=== PATIENT | male | born 1975 | race African-American/Black ===

== ENCOUNTER 2019-12-09 13:29 | Emergency (ER) | payer SELFPAY ==
[~2019-12-09] VITALS: Ht 167.6 cm; Wt 73.0 kg
[2019-12-09] MEDS ORDERED: VISCOUS LIDOCAINE 2% 15 ML UDC PO STA (19:26)
[2019-12-09] MEDS ORDERED: MAGNESIUM/ALUMINUM HYDROXIDE/SIMETHICONE 30ML UDC PO STA (19:26)
[2019-12-09] MEDS ORDERED: FAMOTIDINE 20MG TABLET PO ONE (19:30)
[2019-12-09] MEDS ORDERED: LORAZEPAM 1MG TABLET PO ONE (19:30)
[2019-12-09 19:51] LABS: BASOPHILS % 0.9 % (0.0-2.0); EOSINOPHILS % 1.3 % (0.0-5.0); HEMATOCRIT. 45.3 % (42.0-52.0); LYMPHOCYTES % 37.7 % (20.0-50.0); MEAN CORPUSCULAR HEMOGLOBIN 31.4 pg (28.0-32.0); MEAN CORPUSCULAR VOLUME 94.8 fL (80.0-94.0); MEAN PLATELET VOLUME 8.2 fl (7.4-10.4); MONOCYTES % 5.7 % (2.0-8.0); NEUTROPHILS % 54.4 % (40.0-76.0); PLATELET 152 x1000/uL (130-400); RED BLOOD CELL COUNT 4.78 mill/uL (4.7-6.1); RED CELL DISTRIBUTION WIDTH 21.1 % (11.6-14.6)
[2019-12-09 19:52] LABS: CHLORIDE 109 mEq/L (98-107)
[2019-12-09 20:30] VITALS: BP 119/79
== END 2019-12-09 20:51 | disposition home or self-care (01) ==
LOC: ER 13:29
DX: F10.239 Alcohol dependence with withdrawal, unspecified (principal); K29.20 Alcoholic gastritis without bleeding; I11.0 Hypertensive heart disease with heart failure; I50.9 Heart failure, unspecified; F17.210 Nicotine dependence, cigarettes, uncomplicated; F12.10 Cannabis abuse, uncomplicated; Y90.9 Presence of alcohol in blood, level not specified; Z91.14 Patient's other noncompliance with medication regimen; Z71.6 Tobacco abuse counseling
CPT/HCPCS: 36415; 71045; 80053; 84484; 85025; 93005; 99285; 99406

== ENCOUNTER 2019-12-29 19:47 | Inpatient (IN) | payer OTHER ==
[~2019-12-29] VITALS: Ht 180.3 cm; Wt 73.0 kg
[2019-12-29] MEDS ORDERED: SODIUM CHLORIDE 0.9% 1,000 ML IV ONE ×3 (20:06→22:37)
[2019-12-29] MEDS ORDERED: ONDANSETRON HCL 4MG/2ML INJ IV STA (20:06)
[2019-12-29] MEDS ORDERED: LORAZEPAM 2MG/ML CPJ IV STA (20:06)
[2019-12-29] MEDS ORDERED: VECURONIUM BROMIDE 10 MG/VIAL IV ONE ×2 (21:16→21:45)
[2019-12-29] MEDS ORDERED: SODIUM CHLORIDE 0.9% 10ML VIAL ONE (21:16)
[2019-12-29] MEDS ORDERED: ETOMIDATE 2MG/ML 10ML VIAL IV ONE ×2 (21:16→21:45)
[2019-12-29] MEDS ORDERED: PROPOFOL 10MG/ML 100ML 100 ML IV ONE (21:45)
[2019-12-29 22:09] LABS: BG BASE EXCESS -8.6 mmol/L (-2.0-2.0); BG CARBOXYHEMOGLOBIN 0.5 % (0.5-1.5); BG DEOXYHEMOGLOBIN 0.5 % (0.0-5.0); BG FRACTION INSPIRED OXYGEN 100; BG HCO3 ACT 21.1 mmol/L (22.0-26.0); BG METHEMOGLOBIN 0.3 % (0.0-1.5); BG OXYGEN SATURATION 99.5 % (92.0-98.5); BG OXYHEMOGLOBIN 98.7 % (94.0-97.0); BG PCO2 63.7 mmHg (35.0-45.0); BG PH 7.139 (7.350-7.450); BG PO2 301.7 mmHg (75.0-100.0); BG SAMPLE SITE RIGHT RADIAL; BG TIDAL VOLUME(mL) 500 mL; BG TOTAL HEMOGLOBIN 13.3 g/dL (12.0-18.0); BG VENT MODE VENT - A/C; BG VENT RATE 16 set
[2019-12-29] MEDS ORDERED: NOREPINEPHRINE 4 MG in DEXT 5% WATER 246 ML IV ONE (22:45)
[2019-12-29] MEDS ORDERED: NOREPINEPHRINE 4MG/250ML PMX 250 ML IV PRN (23:00)
[2019-12-29 23:23] LABS: BG BASE EXCESS -8.3 mmol/L (-2.0-2.0); BG CARBOXYHEMOGLOBIN 0.2 % (0.5-1.5); BG DEOXYHEMOGLOBIN 3.4 % (0.0-5.0); BG FRACTION INSPIRED OXYGEN 40; BG HCO3 ACT 18.4 mmol/L (22.0-26.0); BG METHEMOGLOBIN 0.1 % (0.0-1.5); BG OXYGEN SATURATION 96.6 % (92.0-98.5); BG OXYHEMOGLOBIN 96.3 % (94.0-97.0); BG PCO2 42.2 mmHg (35.0-45.0); BG PH 7.258 (7.350-7.450); BG PO2 100.2 mmHg (75.0-100.0); BG SAMPLE SITE RIGHT RADIAL; BG TIDAL VOLUME(mL) 600 mL; BG TOTAL HEMOGLOBIN 12.7 g/dL (12.0-18.0); BG VENT MODE VENT - A/C; BG VENT RATE 16 set
[2019-12-29 23:37] LABS: HEMATOCRIT. 41.3 % (42.0-52.0); HEMOGLOBIN. 13.5 g/dL (14.0-18.0); MEAN CORPUSCULAR HEMOGLOBIN 31.8 pg (28.0-32.0); MEAN CORPUSCULAR VOLUME 96.8 fL (80.0-94.0); MEAN PLATELET VOLUME 8.7 fl (7.4-10.4); PLATELET 139 x1000/uL (130-400); RED BLOOD CELL COUNT 4.26 mill/uL (4.7-6.1); RED CELL DISTRIBUTION WIDTH 19.1 % (11.6-14.6)
[2019-12-29 23:39] LABS: CHLORIDE 110 mEq/L (98-107)
[2019-12-29 23:46] LABS: ETHANOL BLOOD 232 mg/dL
[2019-12-29 23:50] LABS: CREATINE KINASE 226 IU/L (39-308)
[2019-12-29 23:53] LABS: CLARITY URINE CLEAR (CLEAR); COLOR URINE YELLOW (YELLOW); KETONES URINE TRACE (NEGATIVE); LEUKOCYTE ESTERASE URINE NEGATIVE (NEGATIVE); NITRITE URINE NEGATIVE (NEGATIVE); OCCULT BLOOD URINE 3+ (NEGATIVE); PROTEIN URINE 2+ (NEGATIVE); SPECIFIC GRAVITY URINE 1.018 (1.005-1.030)
[2019-12-30] VITALS (50 sets, daily range): BP systolic 93–173; BP diastolic 54–106
[2019-12-30 00:06] LABS: *AMPHETAMINES SCREEN URINE NEGATIVE (NEGATIVE); *BARBITURATES SCREEN URINE NEGATIVE (NEGATIVE); *BENZODIAZEPINES SCREEN URINE PRESUMTIVE POSITIVE (NEGATIVE); *COCAINE SCREEN URINE NEGATIVE (NEGATIVE)
[2019-12-30 00:07] LABS: CANNABINOID URINE SCREEN PRESUMTIVE POSITIVE (NEGATIVE); METHADONE URINE SCREEN NEGATIVE (NEGATIVE); OPIATES URINE SCREEN NEGATIVE (NEGATIVE); PHENCYCLIDINE URINE SCREEN NEGATIVE (NEGATIVE)
[2019-12-30] MEDS ORDERED: ONDANSETRON HCL 4MG/2ML INJ IV PRN (01:30)
[2019-12-30] MEDS ORDERED: NOREPINEPHRINE 4 MG in DEXT 5% WATER 246 ML IV PRN (01:30)
[2019-12-30] MEDS ORDERED: PROPOFOL 10MG/ML 100ML 100 ML IV PRN (01:30)
[2019-12-30] MEDS ORDERED: CLON-457 MT (01:54)
[2019-12-30] MEDS ORDERED: OMEP20CA14 MT (01:54)
[2019-12-30 02:04] LABS: ATYPICAL LYMPHOCYTES 3
[2019-12-30 02:05] LABS: PLATELET ESTIMATE NORMAL
[2019-12-30] MEDS: LORAZEPAM 2MG/ML CPJ IV PRN ×2 (02:24→08:57)
[2019-12-30] MEDS ORDERED: SODIUM CHL 0.45% + KCL 20MEQ/L 1,000 ML IV SCH (03:00)
[2019-12-30] MEDS: PIPERACILLIN/TAZOBACTAM 3.375 G in DEXT 5% WATER 100 ML IV SCH ×3 (05:26→22:04)
[2019-12-30 05:34] LABS: HEMATOCRIT. 38.7 % (42.0-52.0); HEMOGLOBIN. 13.1 g/dL (14.0-18.0); MEAN CORPUSCULAR HEMOGLOBIN 32.2 pg (28.0-32.0); MEAN CORPUSCULAR VOLUME 95.4 fL (80.0-94.0); MEAN PLATELET VOLUME 8.1 fl (7.4-10.4); PLATELET 126 x1000/uL (130-400); RED BLOOD CELL COUNT 4.06 mill/uL (4.7-6.1); RED CELL DISTRIBUTION WIDTH 18.6 % (11.6-14.6)
[2019-12-30 05:40] LABS: CHLORIDE 113 mEq/L (98-107)
[2019-12-30] MEDS ORDERED: PIPERACILLIN/TAZOBACTAM 3.375 G/VIAL IV SCH (06:00)
[2019-12-30 07:24] LABS: BG BASE EXCESS -6.8 mmol/L (-2.0-2.0); BG CARBOXYHEMOGLOBIN 0.8 % (0.5-1.5); BG DEOXYHEMOGLOBIN 2.5 % (0.0-5.0); BG HCO3 ACT 16.5 mmol/L (22.0-26.0); BG METHEMOGLOBIN 0.6 % (0.0-1.5); BG OXYGEN SATURATION 97.5 % (92.0-98.5); BG OXYHEMOGLOBIN 96.1 % (94.0-97.0); BG PCO2 27.4 mmHg (35.0-45.0); BG PH 7.397 (7.350-7.450); BG PO2 99.1 mmHg (75.0-100.0); BG SAMPLE SITE RIGHT RADIAL; BG TIDAL VOLUME(mL) 600 mL; BG TOTAL HEMOGLOBIN 13.4 g/dL (12.0-18.0); BG VENT MODE VENT - A/C; BG VENT RATE 24 set
[2019-12-30 08:06] LABS: PLATELET ESTIMATE SLIGHTLY DECREASED
[2019-12-30] MEDS: ENOXAPARIN 40MG/0.4ML SYR SUBCUT SCH (08:56)
[2019-12-30] MEDS: PANTOPRAZOLE SODIUM 40 MG/VIAL IV SCH (08:56)
[2019-12-30] MEDS: FOLIC ACID 1 MG, THIAMINE HCL 100 MG, MVI, ADULT NO.1 10 ML in DEXTROSE 5% WATER 1,000 ML IV SCH ×4 (11:30)
[2019-12-30] MEDS: IPRATROPIUM/ALBUTEROL 0.5-3(2.5)MG/3ML NEB HHN SCH ×3 (12:55→22:40)
[2019-12-30] MEDS: HYDRALAZINE HCL 10MG TABLET PO SCH (22:04)
[2019-12-31] VITALS (36 sets, daily range): BP systolic 97–172; BP diastolic 57–100
[2019-12-31] MEDS: PIPERACILLIN/TAZOBACTAM 3.375 G in DEXT 5% WATER 100 ML IV SCH ×3 (05:46→21:32)
[2019-12-31] MEDS: HYDRALAZINE HCL 10MG TABLET PO SCH ×3 (05:46→21:32)
[2019-12-31 05:47] LABS: BASOPHILS % 0.6 % (0.0-2.0); EOSINOPHILS % 2.2 % (0.0-5.0); HEMATOCRIT. 39.1 % (42.0-52.0); HEMOGLOBIN. 13.2 g/dL (14.0-18.0); LYMPHOCYTES % 18.3 % (20.0-50.0); MEAN CORPUSCULAR HEMOGLOBIN 31.8 pg (28.0-32.0); MEAN CORPUSCULAR VOLUME 94.1 fL (80.0-94.0); MEAN PLATELET VOLUME 8.2 fl (7.4-10.4); MONOCYTES % 5.5 % (2.0-8.0); NEUTROPHILS % 73.4 % (40.0-76.0); PLATELET 121 x1000/uL (130-400); RED BLOOD CELL COUNT 4.16 mill/uL (4.7-6.1); RED CELL DISTRIBUTION WIDTH 18.3 % (11.6-14.6)
[2019-12-31 05:54] LABS: CHLORIDE 111 mEq/L (98-107)
[2019-12-31] MEDS: DEXT 5%/0.45% NACL 1000ML 1,000 ML IV SCH ×2 (07:09→17:00)
[2019-12-31] MEDS: ENOXAPARIN 40MG/0.4ML SYR SUBCUT SCH (08:08)
[2019-12-31] MEDS: PANTOPRAZOLE SODIUM 40 MG/VIAL IV SCH (08:08)
[2019-12-31] MEDS: LEVOTHYROXINE SODIUM 50MCG TABLET PO SCH (08:08)
[2019-12-31 08:45] LABS: BG BASE EXCESS -4.1 mmol/L (-2.0-2.0); BG CARBOXYHEMOGLOBIN 0.2 % (0.5-1.5); BG DEOXYHEMOGLOBIN 1.3 % (0.0-5.0); BG FRACTION INSPIRED OXYGEN 40; BG HCO3 ACT 17.6 mmol/L (22.0-26.0); BG METHEMOGLOBIN 0.1 % (0.0-1.5); BG OXYGEN SATURATION 98.7 % (92.0-98.5); BG OXYHEMOGLOBIN 98.4 % (94.0-97.0); BG PCO2 24.3 mmHg (35.0-45.0); BG PH 7.478 (7.350-7.450); BG SAMPLE SITE RIGHT RADIAL; BG TIDAL VOLUME(mL) 600 mL; BG TOTAL HEMOGLOBIN 13.6 g/dL (12.0-18.0); BG VENT MODE VENT - A/C; BG VENT RATE 24 set
[2019-12-31] MEDS: IPRATROPIUM/ALBUTEROL 0.5-3(2.5)MG/3ML NEB HHN SCH ×3 (08:47→22:19)
[2019-12-31] MEDS ORDERED: FUROSEMIDE 40MG/4ML VIAL IVP SCH (11:00)
[2019-12-31] MEDS: FOLIC ACID 1 MG, THIAMINE HCL 100 MG, MVI, ADULT NO.1 10 ML in DEXTROSE 5% WATER 1,000 ML IV SCH ×4 (11:06)
[2019-12-31 13:11] LABS: BG BASE EXCESS 0.2 mmol/L (-2.0-2.0); BG CARBOXYHEMOGLOBIN 0.8 % (0.5-1.5); BG DEOXYHEMOGLOBIN 1.9 % (0.0-5.0); BG FRACTION INSPIRED OXYGEN 40; BG HCO3 ACT 24.8 mmol/L (22.0-26.0); BG METHEMOGLOBIN 0.2 % (0.0-1.5); BG OXYGEN SATURATION 98.1 % (92.0-98.5); BG OXYHEMOGLOBIN 97.1 % (94.0-97.0); BG PCO2 40.1 mmHg (35.0-45.0); BG PH 7.409 (7.350-7.450); BG PO2 116.5 mmHg (75.0-100.0); BG PRESSURE SUPPORT 10; BG SAMPLE SITE RIGHT RADIAL; BG TIDAL VOLUME(mL) 600 mL; BG TOTAL HEMOGLOBIN 14.6 g/dL (12.0-18.0); BG VENT MODE VENT - SIMV; BG VENT RATE 10 set
[2019-12-31] MEDS: CHLORDIAZEPOXIDE 25MG CAPSULE PO SCH ×2 (15:16→21:32)
[2019-12-31] MEDS: LEVETIRACETAM 500MG PREMIX 100 ML IV SCH (16:26)
[2019-12-31] MEDS: LORAZEPAM 2MG/ML CPJ IV PRN (19:11)
[2019-12-31] MEDS ORDERED: LORAZEPAM 2MG/ML CPJ IV PRN (19:30)
[2020-01-01] VITALS (48 sets, daily range): BP systolic 86–140; BP diastolic 51–91
[2020-01-01] MEDS: LEVETIRACETAM 500MG PREMIX 100 ML IV SCH ×3 (00:04→20:45)
[2020-01-01] MEDS: FENTANYL CITRATE/PF 500 MCG in SODIUM CHLORIDE 0.9% 40 ML IV PRN ×2 (00:05→13:23)
[2020-01-01] MEDS: MIDAZOLAM HCL 50 MG in DEXTROSE 5% WATER 40 ML IV PRN ×2 (00:06→13:22)
[2020-01-01] MEDS: DEXT 5%/0.45% NACL 1000ML 1,000 ML IV SCH ×3 (03:46→22:23)
[2020-01-01] MEDS: CHLORDIAZEPOXIDE 25MG CAPSULE PO SCH ×3 (05:24→22:23)
[2020-01-01] MEDS: PIPERACILLIN/TAZOBACTAM 3.375 G in DEXT 5% WATER 100 ML IV SCH ×3 (05:24→21:33)
[2020-01-01] MEDS: HYDRALAZINE HCL 10MG TABLET PO SCH (05:24)
[2020-01-01 06:31] LABS: BASOPHILS % 0.5 % (0.0-2.0); EOSINOPHILS % 3.6 % (0.0-5.0); HEMATOCRIT. 44.4 % (42.0-52.0); HEMOGLOBIN. 15.1 g/dL (14.0-18.0); LYMPHOCYTES % 16.4 % (20.0-50.0); MEAN CORPUSCULAR HEMOGLOBIN 32.1 pg (28.0-32.0); MEAN CORPUSCULAR VOLUME 94.7 fL (80.0-94.0); MEAN PLATELET VOLUME 8.7 fl (7.4-10.4); MONOCYTES % 7.3 % (2.0-8.0); NEUTROPHILS % 72.2 % (40.0-76.0); PLATELET 124 x1000/uL (130-400); RED BLOOD CELL COUNT 4.69 mill/uL (4.7-6.1); RED CELL DISTRIBUTION WIDTH 18.2 % (11.6-14.6)
[2020-01-01 07:46] LABS: CHLORIDE 104 mEq/L (98-107)
[2020-01-01] MEDS: LEVOTHYROXINE SODIUM 50MCG TABLET PO SCH (08:12)
[2020-01-01] MEDS: PANTOPRAZOLE SODIUM 40 MG/VIAL IV SCH (08:12)
[2020-01-01] MEDS: ENOXAPARIN 40MG/0.4ML SYR SUBCUT SCH (08:12)
[2020-01-01] MEDS ORDERED: SODIUM CHLORIDE 0.9% 1,000 ML IV NR (09:45)
[2020-01-01] MEDS ORDERED: POTASSIUM CHLORIDE 20MEQ TABLET SR PO NR (11:15)
[2020-01-01] MEDS ORDERED: DILTIAZEM HCL 5MG/ML 5ML VIAL IV NR (11:30)
[2020-01-01] MEDS ORDERED: SODIUM CHLORIDE 0.9% 500 ML IV NR (11:30)
[2020-01-01] MEDS ORDERED: FOLIC ACID 1 MG, THIAMINE HCL 100 MG, MVI, ADULT NO.1 10 ML in DEXT 5%/0.45% NACL 1000M... IV SCH ×4 (14:30)
[2020-01-01] MEDS ORDERED: IPRATROPIUM BROMIDE (0.02%) 0.5MG/2.5ML NEB HHN PRN (14:30)
[2020-01-01 15:16] LABS: BG BASE EXCESS -2.9 mmol/L (-2.0-2.0); BG CARBOXYHEMOGLOBIN 0.9 % (0.5-1.5); BG DEOXYHEMOGLOBIN 2.7 % (0.0-5.0); BG FRACTION INSPIRED OXYGEN 35; BG HCO3 ACT 19.9 mmol/L (22.0-26.0); BG METHEMOGLOBIN 0.1 % (0.0-1.5); BG OXYGEN SATURATION 97.3 % (92.0-98.5); BG OXYHEMOGLOBIN 96.3 % (94.0-97.0); BG PCO2 29.8 mmHg (35.0-45.0); BG PH 7.443 (7.350-7.450); BG PO2 90.4 mmHg (75.0-100.0); BG SAMPLE SITE RIGHT RADIAL; BG TIDAL VOLUME(mL) 600 mL; BG TOTAL HEMOGLOBIN 14.3 g/dL (12.0-18.0); BG VENT MODE VENT - A/C; BG VENT RATE 10 set
[2020-01-01 15:33] LABS: INR 1.1; PROTHROMBIN TIME 11.6 sec (9.6-11.0)
[2020-01-01 15:41] LABS: CREATINE KINASE 41 IU/L (39-308)
[2020-01-02] VITALS (46 sets, daily range): BP systolic 113–151; BP diastolic 62–93
[2020-01-02] MEDS: PIPERACILLIN/TAZOBACTAM 3.375 G in DEXT 5% WATER 100 ML IV SCH ×3 (05:44→21:20)
[2020-01-02] MEDS: CHLORDIAZEPOXIDE 25MG CAPSULE PO SCH ×3 (05:44→21:22)
[2020-01-02] MEDS: MIDAZOLAM HCL 50 MG in DEXTROSE 5% WATER 40 ML IV PRN (06:17)
[2020-01-02 06:30] LABS: BASOPHILS % 0.8 % (0.0-2.0); EOSINOPHILS % 5.6 % (0.0-5.0); HEMATOCRIT. 39.7 % (42.0-52.0); HEMOGLOBIN. 13.4 g/dL (14.0-18.0); MEAN CORPUSCULAR HEMOGLOBIN 32.1 pg (28.0-32.0); MEAN CORPUSCULAR VOLUME 95.4 fL (80.0-94.0); MEAN PLATELET VOLUME 8.5 fl (7.4-10.4); MONOCYTES % 10.5 % (2.0-8.0); NEUTROPHILS % 62.1 % (40.0-76.0); PLATELET 118 x1000/uL (130-400); RED BLOOD CELL COUNT 4.16 mill/uL (4.7-6.1)
[2020-01-02 06:44] LABS: CHLORIDE 109 mEq/L (98-107)
[2020-01-02 07:54] LABS: BG BASE EXCESS -1.3 mmol/L (-2.0-2.0); BG CARBOXYHEMOGLOBIN 0.3 % (0.5-1.5); BG DEOXYHEMOGLOBIN 2.9 % (0.0-5.0); BG FRACTION INSPIRED OXYGEN 35; BG METHEMOGLOBIN 0.3 % (0.0-1.5); BG OXYGEN SATURATION 97.1 % (92.0-98.5); BG OXYHEMOGLOBIN 96.5 % (94.0-97.0); BG PCO2 32.9 mmHg (35.0-45.0); BG PH 7.443 (7.350-7.450); BG PO2 90.1 mmHg (75.0-100.0); BG SAMPLE SITE RIGHT RADIAL; BG TIDAL VOLUME(mL) 600 mL; BG TOTAL HEMOGLOBIN 13.6 g/dL (12.0-18.0); BG VENT MODE VENT - A/C; BG VENT RATE 10 set
[2020-01-02] MEDS: LEVOTHYROXINE SODIUM 50MCG TABLET PO SCH (09:05)
[2020-01-02] MEDS: PANTOPRAZOLE SODIUM 40 MG/VIAL IV SCH (09:05)
[2020-01-02] MEDS: FENTANYL CITRATE/PF 500 MCG in SODIUM CHLORIDE 0.9% 40 ML IV PRN (09:05)
[2020-01-02] MEDS: ENOXAPARIN 40MG/0.4ML SYR SUBCUT SCH (09:05)
[2020-01-02] MEDS: DEXT 5%/0.45% NACL 1000ML 1,000 ML IV SCH ×2 (09:06→19:35)
[2020-01-02] MEDS: LEVETIRACETAM 500MG PREMIX 100 ML IV SCH ×2 (09:06→20:09)
[2020-01-02] MEDS: FOLIC ACID 1 MG, THIAMINE HCL 100 MG, MVI, ADULT NO.1 10 ML in DEXT 5%/0.45% NACL 1000M... IV SCH ×4 (11:12)
[2020-01-02] MEDS ORDERED: MAGNESIUM 2 G PREMIX 50 ML IV SCH (16:00)
[2020-01-02 16:14] LABS: BG BASE EXCESS -3.5 mmol/L (-2.0-2.0); BG CARBOXYHEMOGLOBIN 0.9 % (0.5-1.5); BG DEOXYHEMOGLOBIN 4.1 % (0.0-5.0); BG FRACTION INSPIRED OXYGEN 30; BG HCO3 ACT 21.3 mmol/L (22.0-26.0); BG METHEMOGLOBIN 0.1 % (0.0-1.5); BG OXYGEN SATURATION 95.9 % (92.0-98.5); BG OXYHEMOGLOBIN 94.9 % (94.0-97.0); BG PH 7.367 (7.350-7.450); BG PO2 85.3 mmHg (75.0-100.0); BG PRESSURE SUPPORT 8; BG SAMPLE SITE RIGHT RADIAL; BG TOTAL HEMOGLOBIN 13.7 g/dL (12.0-18.0); BG VENT MODE VENT - CPAP
[2020-01-03] VITALS (25 sets, daily range): BP systolic 111–185; BP diastolic 56–103
[2020-01-03] MEDS: DEXT 5%/0.45% NACL 1000ML 1,000 ML IV SCH ×2 (05:02→15:00)
[2020-01-03] MEDS: CHLORDIAZEPOXIDE 25MG CAPSULE PO SCH ×3 (05:02→21:15)
[2020-01-03] MEDS: PIPERACILLIN/TAZOBACTAM 3.375 G in DEXT 5% WATER 100 ML IV SCH ×3 (05:02→23:03)
[2020-01-03 06:01] LABS: CHLORIDE 112 mEq/L (98-107)
[2020-01-03 06:04] LABS: BASOPHILS % 0.7 % (0.0-2.0); EOSINOPHILS % 4.4 % (0.0-5.0); HEMATOCRIT. 39.4 % (42.0-52.0); HEMOGLOBIN. 13.2 g/dL (14.0-18.0); MEAN CORPUSCULAR HEMOGLOBIN 32.2 pg (28.0-32.0); MEAN CORPUSCULAR VOLUME 96.3 fL (80.0-94.0); MEAN PLATELET VOLUME 8.1 fl (7.4-10.4); NEUTROPHILS % 62.9 % (40.0-76.0); PLATELET 125 x1000/uL (130-400); RED CELL DISTRIBUTION WIDTH 17.9 % (11.6-14.6)
[2020-01-03] MEDS: LEVOTHYROXINE SODIUM 50MCG TABLET PO SCH (08:05)
[2020-01-03] MEDS: FOLIC ACID 1 MG, THIAMINE HCL 100 MG, MVI, ADULT NO.1 10 ML in DEXT 5%/0.45% NACL 1000M... IV SCH ×4 (08:05)
[2020-01-03] MEDS: PANTOPRAZOLE SODIUM 40 MG/VIAL IV SCH (08:06)
[2020-01-03] MEDS: LEVETIRACETAM 500MG PREMIX 100 ML IV SCH ×2 (08:06→21:16)
[2020-01-03] MEDS: ENOXAPARIN 40MG/0.4ML SYR SUBCUT SCH (08:06)
[2020-01-03] MEDS: ACETAMINOPHEN 325MG TABLET PO PRN (14:06)
[2020-01-04] VITALS: BP 128/90
[2020-01-04 04:00] VITALS: BP 151/86
[2020-01-04 05:17] LABS: HEMATOCRIT. 36.2 % (42.0-52.0); HEMOGLOBIN. 12.1 g/dL (14.0-18.0); MEAN CORPUSCULAR HEMOGLOBIN 32.1 pg (28.0-32.0); MEAN CORPUSCULAR VOLUME 95.9 fL (80.0-94.0); MEAN PLATELET VOLUME 8.1 fl (7.4-10.4); PLATELET 125 x1000/uL (130-400); RED BLOOD CELL COUNT 3.77 mill/uL (4.7-6.1); RED CELL DISTRIBUTION WIDTH 17.2 % (11.6-14.6)
[2020-01-04 05:37] LABS: CHLORIDE 111 mEq/L (98-107)
[2020-01-04] MEDS: PIPERACILLIN/TAZOBACTAM 3.375 G in DEXT 5% WATER 100 ML IV SCH ×3 (05:39→21:53)
[2020-01-04] MEDS: DEXT 5%/0.45% NACL 1000ML 1,000 ML IV SCH ×3 (05:39→21:59)
[2020-01-04] MEDS: CHLORDIAZEPOXIDE 25MG CAPSULE PO SCH ×3 (05:39→21:58)
[2020-01-04] MEDS: LEVOTHYROXINE SODIUM 50MCG TABLET PO SCH (05:39)
[2020-01-04 08:00] VITALS: BP 139/91
[2020-01-04] MEDS: ENOXAPARIN 40MG/0.4ML SYR SUBCUT SCH (09:38)
[2020-01-04] MEDS: PANTOPRAZOLE SODIUM 40 MG/VIAL IV SCH (09:38)
[2020-01-04] MEDS: LEVETIRACETAM 500MG PREMIX 100 ML IV SCH ×2 (09:39→21:09)
[2020-01-04 10:20] LABS: PLATELET ESTIMATE SLIGHTLY DECREASED
[2020-01-04] MEDS: FOLIC ACID 1 MG, THIAMINE HCL 100 MG, MVI, ADULT NO.1 10 ML in DEXT 5%/0.45% NACL 1000M... IV SCH ×4 (11:48)
[2020-01-04 12:00] VITALS: BP 142/94
[2020-01-04 16:00] VITALS: BP 153/98
[2020-01-04 20:00] VITALS: BP 138/91
[2020-01-05] VITALS: BP 145/92
[2020-01-05 04:00] VITALS: BP 142/73
[2020-01-05] MEDS: CHLORDIAZEPOXIDE 25MG CAPSULE PO SCH ×2 (05:04→13:57)
[2020-01-05] MEDS: LEVOTHYROXINE SODIUM 50MCG TABLET PO SCH (05:04)
[2020-01-05 07:07] LABS: EOSINOPHILS % 3.5 % (0.0-5.0); HEMATOCRIT. 36.9 % (42.0-52.0); HEMOGLOBIN. 12.5 g/dL (14.0-18.0); LYMPHOCYTES % 21.4 % (20.0-50.0); MEAN CORPUSCULAR HEMOGLOBIN 32.2 pg (28.0-32.0); MEAN CORPUSCULAR VOLUME 95.2 fL (80.0-94.0); MEAN PLATELET VOLUME 7.9 fl (7.4-10.4); MONOCYTES % 14.1 % (2.0-8.0); PLATELET 145 x1000/uL (130-400); RED BLOOD CELL COUNT 3.87 mill/uL (4.7-6.1); RED CELL DISTRIBUTION WIDTH 17.3 % (11.6-14.6)
[2020-01-05 07:22] LABS: CHLORIDE 109 mEq/L (98-107)
[2020-01-05 08:00] VITALS: BP 143/92
[2020-01-05] MEDS: PANTOPRAZOLE SODIUM 40 MG/VIAL IV SCH (09:41)
[2020-01-05] MEDS: DEXT 5%/0.45% NACL 1000ML 1,000 ML IV SCH ×2 (09:41→18:41)
[2020-01-05] MEDS: ENOXAPARIN 40MG/0.4ML SYR SUBCUT SCH (09:41)
[2020-01-05] MEDS: LEVETIRACETAM 500MG PREMIX 100 ML IV SCH ×2 (09:41→21:59)
[2020-01-05] MEDS: FOLIC ACID 1 MG, THIAMINE HCL 100 MG, MVI, ADULT NO.1 10 ML in DEXT 5%/0.45% NACL 1000M... IV SCH ×4 (09:43)
[2020-01-05 12:00] VITALS: BP 165/97
[2020-01-05 16:00] VITALS: BP 146/87
[2020-01-05 20:00] VITALS: BP 145/96
[2020-01-05] MEDS: AMLODIPINE 5MG TABLET PO SCH (21:59)
[2020-01-06] VITALS: BP 151/99
[2020-01-06] MEDS: DEXT 5%/0.45% NACL 1000ML 1,000 ML IV SCH ×2 (02:33→13:03)
[2020-01-06 04:00] VITALS: BP 153/93
[2020-01-06] MEDS: LEVOTHYROXINE SODIUM 50MCG TABLET PO SCH (06:30)
[2020-01-06 08:00] VITALS: BP 140/89
[2020-01-06] MEDS: LEVETIRACETAM 500MG PREMIX 100 ML IV SCH ×2 (10:36→21:54)
[2020-01-06] MEDS: PANTOPRAZOLE SODIUM 40 MG/VIAL IV SCH (10:36)
[2020-01-06] MEDS: AMLODIPINE 5MG TABLET PO SCH ×2 (10:36→21:54)
[2020-01-06] MEDS: ENOXAPARIN 40MG/0.4ML SYR SUBCUT SCH (10:37)
[2020-01-06 12:00] VITALS: BP 147/98
[2020-01-06] MEDS: FOLIC ACID 1 MG, THIAMINE HCL 100 MG, MVI, ADULT NO.1 10 ML in DEXT 5%/0.45% NACL 1000M... IV SCH ×4 (13:03)
[2020-01-06 20:00] VITALS: BP 145/95
[2020-01-07] VITALS (7 sets, daily range): BP systolic 119–149; BP diastolic 57–91
[2020-01-07] MEDS: LEVOTHYROXINE SODIUM 50MCG TABLET PO SCH (06:52)
[2020-01-07] MEDS: LEVETIRACETAM 500MG PREMIX 100 ML IV SCH ×2 (08:36→20:24)
[2020-01-07] MEDS: AMLODIPINE 5MG TABLET PO SCH ×2 (08:36→20:24)
[2020-01-07] MEDS: PANTOPRAZOLE SODIUM 40 MG/VIAL IV SCH (08:36)
[2020-01-07] MEDS: ENOXAPARIN 40MG/0.4ML SYR SUBCUT SCH (08:37)
[2020-01-07] MEDS: ACETAMINOPHEN 325MG TABLET PO PRN (10:46)
[2020-01-07] MEDS: FOLIC ACID 1 MG, THIAMINE HCL 100 MG, MVI, ADULT NO.1 10 ML in DEXT 5%/0.45% NACL 1000M... IV SCH ×4 (13:32)
[2020-01-07] MEDS: DEXT 5%/0.45% NACL 1000ML 1,000 ML IV SCH (23:00)
[2020-01-08] VITALS: BP 145/86
[2020-01-08 04:00] VITALS: BP 137/85
[2020-01-08 08:00] VITALS: BP 134/81
[2020-01-08] MEDS: LEVOTHYROXINE SODIUM 50MCG TABLET PO SCH (08:39)
[2020-01-08] MEDS: ENOXAPARIN 40MG/0.4ML SYR SUBCUT SCH (08:40)
[2020-01-08] MEDS: AMLODIPINE 5MG TABLET PO SCH (08:40)
[2020-01-08] MEDS: LEVETIRACETAM 500MG PREMIX 100 ML IV SCH (08:40)
[2020-01-08] MEDS: PANTOPRAZOLE SODIUM 40 MG/VIAL IV SCH (08:40)
[2020-01-08] MEDS: DEXT 5%/0.45% NACL 1000ML 1,000 ML IV SCH (08:42)
[2020-01-08 12:00] VITALS: BP 137/87
[2020-01-08 15:36] VITALS: BP 137/87
== END 2020-01-08 17:00 | disposition home or self-care (01) | DRG 871 ==
LOC: ER 19:47 → CVICU 22:03 → ENRESERV 22:31 → 5WST 01-03 16:45
PROVIDERS: ADMIT Internal Medicine; ATTEND Internal Medicine
PROC: 5A1945Z Respiratory Ventilation, 24-96 Consecutive Hours (ICD-10-PCS; principal; 2019-12-29)
PROC: 0BH17EZ Insertion of Endotracheal Airway into Trachea, Via Natural or Artificial Opening (ICD-10-PCS; 2019-12-29)
PROC: 06HY33Z Insertion of Infusion Device into Lower Vein, Percutaneous Approach (ICD-10-PCS; 2019-12-29)
PROC: B54BZZA Ultrasonography of Right Lower Extremity Veins, Guidance (ICD-10-PCS; 2019-12-29)
DX: A41.9 Sepsis, unspecified organism (principal); J69.0 Pneumonitis due to inhalation of food and vomit; G92 Toxic encephalopathy; J96.00 Acute respiratory failure, unspecified whether with hypoxia or hypercapnia; E87.2 Acidosis; Z99.11 Dependence on respirator [ventilator] status; E87.8 Other disorders of electrolyte and fluid balance, not elsewhere classified; I11.0 Hypertensive heart disease with heart failure; E03.9 Hypothyroidism, unspecified; Y90.7 Blood alcohol level of 200-239 mg/100 ml; F12.90 Cannabis use, unspecified, uncomplicated; I50.9 Heart failure, unspecified; T51.0X1A Toxic effect of ethanol, accidental (unintentional), initial encounter; F10.120 Alcohol abuse with intoxication, uncomplicated; I36.1 Nonrheumatic tricuspid (valve) insufficiency; I27.20 Pulmonary hypertension, unspecified; Z78.1 Physical restraint status; Y92.89 Other specified places as the place of occurrence of the external cause; Z71.41 Alcohol abuse counseling and surveillance of alcoholic
CPT/HCPCS: 36415; 36600; 71045; 80048; 80053; 80076; 80305; 80307; 80320; 80329; 81003; 82140; 82375; 82550; 82805; 83735; 83880; 84145; 84439; 84443; 84478; 84484; 85025; 87070; 92610; 93005; 93306; 93970; 94002; 94003; 94640; 96361; 96365; 96375; 97116; 97162; 97166; 97530; 97535; 99291; C9113; J1650; J1940; J1953; J2060; J2250; J2405; J2543; J2704; J3010; J3411; J3475; J3480; J3490; J7030; J7060; J7070; G0480